=== PATIENT | male | born 1970 | race Hispanic/Latino ===

== ENCOUNTER 2019-06-08 15:26 | Emergency (ER) | payer OTHER ==
[2019-06-08] MEDS ORDERED: FENTANYL CITR 100 MCG/2 ML ONE (16:21)
[2019-06-08] MEDS ORDERED: ONDANSETRON 4 MG/2 ML VIAL ONE (16:21)
[2019-06-08 16:23] LABS: Basophils % 0.4 % (0-1.3); Lymphocytes % 17.9 % (15.3-44.8); MPV 7.5 fL (7.6-11.3); RBC Red Blood Cell Count 5.09 M/uL (4.33-5.43)
[2019-06-08 16:39] LABS: Albumin 4.3 g/dL (3.4-5.0); Bilirubin Direct 0.2 mg/dL (0-0.2); Bilirubin Total 0.6 mg/dL (0.2-1.0); Potassium 4.1 mmol/L (3.5-5.1); Protein, Total 7.2 g/dL (6.4-8.2)
[2019-06-08 16:42] LABS: Urine Blood NEGATIVE (NEG); Urine Glucose NEGATIVE (NEG); Urine Protein NEGATIVE (NEG); Urine pH 6.5 (5.0-7.0)
--- NOTE | 2019-06-08 16:56 | RAD REPORT ---
EXAM DESCRIPTION: CT - Abdomen Pelvis Wo Contrast - 06/08/2019 4:45 pm CLINICAL HISTORY: ABD PAIN COMPARISON: Abdomen Pelvis Wo Contrast dated 05/29/2017 TECHNIQUE: Axial [address] imaging of the abdomen and pelvis was performed without IV contrast. No IV contrast was given because of allergy, abnormal renal function, patient refusal or physician re quest. No oral contrast administered. All CT scans are performed using dose optimization technique as appropriate and may include automated exposure control or mA/KV adjustment according to patient size. FINDINGS: No suspicious findings in the lung bases. Diffuse fatty infiltration of the liver noted. No focal liver lesion. Spleen and pancreas show no kirsty picious findings. Cholecystectomy clips are present. No biliary tree dilatation. No hydronephrosis or suspicious renal mass. No significant adrenal finding. Isodense renal masses an d pyelonephritis cannot be excluded in the absence of IV contrast. The urinary bladder is without sig nificant finding. No dilated bowel loops or bowel wall thickening. Appendix is normal. No free air, free fluid or infla mmatory stranding. No mass or bulky lymphadenopathy. Patient has a very small 10 mm umbilical hernia. Fat extends into the origin of the left inguinal canal. No acute bone finding. Patient has significant for age degenerative change at the L4-5 and L5-S1 disc levels. IMPRESSION: Non-contrast enhanced CT abdomen and pelvis imaging show no acute or emergent finding fi nding. Nonacute findings detailed in the body of the report. Full assessment is limited is the absence of IV contrast.
--- NOTE | 2019-06-08 17:22 | ER ---
Nurse's Notes [facility] Name: Miguel A Triplett Age: 49 yrs Sex: Male : 1970 Arrival Date: 06/08/2019 Time: 15:27 Bed 23 Private MD: Diagnosis: Other abdominal pain;Strain of muscle, fascia and tendon of abdomen Presentation: 06/08 15:48 Presenting complaint: Patient states: i have RLQ radiating to my back for few days now. mg2 Transition of care: patient was not received from another setting of care. Onset of symptoms was May 2019. Risk Assessment: Do you want to hurt yourself or someone else? Patient reports no desire to harm self or others. Initial Sepsis Screen: Does the patient meet any 2 criteria? No. Patient's initial sepsis screen is negative. Does the patient have a suspected source of infection? No. Patient's initial sepsis screen is negative. Care prior to arrival: None. 15:48 Method Of Arrival: Ambulatory mg2 15:48 Acuity: ALBA 3 mg2 Historical: - Allergies: 15:50 iodine dye; mg2 - PMHx: 15:50 Hypertension; mg2 - PSHx: 15:50 Cholecystectomy; mg2 - Immunization history:: Flu vaccine is not up to date. - Social history:: Smoking status: Patient/guardian denies using tobacco, Patient/guardian denies using alcohol, street drugs, IV drugs. - Ebola Screening: : No symptoms or risks identified at this time. Screenin:04 Abuse screen: Denies threats or abuse. Denies injuries from another. Nutritional mg2 screening: No deficits noted. Tuberculosis screening: No symptoms or risk factors identified. Fall Risk None identified. Assessment: 16:20 General: Appears in no apparent distress. comfortable, Behavior is calm, cooperative. mg2 Pain: Complains of pain in posterior aspect of right lateral abdomen and anterior aspect of right lateral abdomen Pain radiates to right mid back. 16:20 Neuro: Level of Consciousness is awake, alert, obeys commands, Oriented to person, mg2 place, time, situation. Cardiovascular: Capillary refill < 3 seconds Patient's skin is warm and dry. Respiratory: Airway is patent Respiratory effort is even, unlabored, Respiratory pattern is regular, symmetrical. GI: Bowel sounds present X 4 quads. Abd is soft and non tender Reports lower abdominal pain. : No signs and/or symptoms were reported regarding the genitourinary system. EENT: No signs and/or symptoms were reported regarding the EENT system. Derm: Skin is intact, is healthy with good turgor, Skin is pink, warm \T\ dry. normal. Musculoskeletal: Circulation, motion, and sensation intact. Capillary refill < 3 seconds. 17:37 Reassessment: Patient appears in no apparent distress at this time. Patient states mg2 feeling better. Vital Signs: 15:49 Weight 127.01 kg; Height 5 ft. 9 in. (175.26 cm); mg2 16:03 BP 132 / 85; Pulse 87; Resp 18; Pulse Ox 97% on R/A; mg2 16:23 Temp 97.8; Pain 3/10; mg2 17:37 BP 137 / 81; Pulse 80; Resp 18; Temp 98; Pulse Ox 100% on R/A; mg2 15:49 Body Mass Index 41.35 (127.01 kg, 175.26 cm) mg2 ED Course: 15:27 Patient arrived in ED. as 15:38 Dario Perez PA is PHCP. jr8 15:38 Vladimir Kim MD is Attending Physician. jr8 15:48 Kodi Stratton RN is Primary Nurse. mg2 15:49 Triage completed. mg2 15:50 Arm band placed on. mg2 16:23 No provider procedures requiring assistance completed. Inserted saline lock: 20 gauge mg2 in right forearm, using aseptic technique. Blood collected. 16:44 CT Abd/Pelvis - Without Contrast In Process Unspecified. EDMS 17:00 Patient has correct armband on for positive identification. mg2 17:37 IV discontinued, intact, bleeding controlled, No redness/swelling at site. Pressure mg2 dressing applied. Administered Medications: 16:22 Drug: fentaNYL (PF) 75 mcg Route: IVP; Site: right forearm; mg2 17:36 Follow up: Response: No adverse reaction; Marked relief of symptoms mg2 16:22 Drug: Zofran 4 mg Route: IVP; Site: right forearm; mg2 17:36 Follow up: Response: No adverse reaction; Marked relief of symptoms mg2 Outcome: 17:21 Discharge ordered by . jr8 17:38 Discharged to home ambulatory, with family. mg2 17:38 Condition: stable 17:38 Discharge instructions given to patient, family, Instructed on discharge instructions, follow up and referral plans. medication usage, Demonstrated understanding of instructions, follow-up care, medications, Prescriptions given X 3. 17:38 Patient left the ED. mg2 Signatures: Dispatcher [employer] Beata Alonso Josh, PA PA jr8 Kodi Stratton, RN RN mg2
--- NOTE | 2019-06-08 17:22 | EDPHYS ---
Physician Documentation [facility] Name: Miguel A Triplett Age: 49 yrs Sex: Male : 1970 Arrival Date: 06/08/2019 Time: 15:27 Bed 23 Private MD: ED Physician Vladimir Kim HPI: 06/08 16:31 This 49 yrs old Male presents to ER via Ambulatory with complaints of jr8 Abdominal Pain, Back Pain. 16:31 The patient presents with abdominal pain right lower quadrant. Onset: The jr8 symptoms/episode began/occurred gradually, 3 day(s) ago. The symptoms radiate to right back, the right flank. Associated signs and symptoms: Pertinent positives: anorexia. The symptoms are described as sharp. Modifying factors: The symptoms are alleviated by nothing, the symptoms are aggravated by nothing. Severity of pain: At its worst the pain was moderate in the emergency department the pain is unchanged. The patient has not experienced similar symptoms in the past. The patient has not recently seen a physician. Stated the he does a lot of exercising and though he had pulled a muscle in right side of back and abdomen. Stated that he has given it a few days but getting worse and now has loss of appetite. Denies n/v/d or fevers . Historical: - Allergies: 15:50 iodine dye; mg2 - PMHx: 15:50 Hypertension; mg2 - PSHx: 15:50 Cholecystectomy; mg2 - Immunization history:: Flu vaccine is not up to date. - Social history:: Smoking status: Patient/guardian denies using tobacco, Patient/guardian denies using alcohol, street drugs, IV drugs. - Ebola Screening: : No symptoms or risks identified at this time. ROS: 16:31 Eyes: Negative for injury, pain, redness, and discharge, ENT: Negative for injury, jr8 pain, and discharge, Neck: Negative for injury, pain, and swelling, Cardiovascular: Negative for chest pain, palpitations, and edema, Respiratory: Negative for shortness of breath, cough, wheezing, and pleuritic chest pain, MS/Extremity: Negative for injury and deformity, Skin: Negative for injury, rash, and discoloration, Neuro: Negative for headache, weakness, numbness, tingling, and seizure. 16:31 Abdomen/GI: Positive for abdominal pain, Negative for nausea, vomiting, and diarrhea, constipation, abdominal cramps, abdominal distension. 16:31 Back: Positive for pain with movement, flank pain, on the right. Exam: 16:31 Eyes: Pupils equal round and reactive to light, extra-ocular motions intact. Lids and jr8 lashes normal. Conjunctiva and sclera are non-icteric and not injected. Cornea within normal limits. Periorbital areas with no swelling, redness, or edema. ENT: Nares patent. No nasal discharge, no septal abnormalities noted. Tympanic membranes are normal and external auditory canals are clear. Oropharynx with no redness, swelling, or masses, exudates, or evidence of obstruction, uvula midline. Mucous membranes moist. Neck: Trachea midline, no thyromegaly or masses palpated, and no cervical lymphadenopathy. Supple, full range of motion without nuchal rigidity, or vertebral point tenderness. No Meningismus. Cardiovascular: Regular rate and rhythm with a normal S1 and S2. No gallops, murmurs, or rubs. Normal PMI, no JVD. No pulse deficits. Respiratory: Lungs have equal breath sounds bilaterally, clear to auscultation and percussion. No rales, rhonchi or wheezes noted. No increased work of breathing, no retractions or nasal flaring. Skin: Warm, dry with normal turgor. Normal color with no rashes, no lesions, and no evidence of cellulitis. MS/ Extremity: Pulses equal, no cyanosis. Neurovascular intact. Full, normal range of motion. Neuro: Awake and alert, GCS 15, oriented to person, place, time, and situation. Cranial nerves II-XII grossly intact. Motor strength 5/5 in all extremities. Sensory grossly intact. Cerebellar exam normal. Normal gait. 16:31 Abdomen/GI: Inspection: obese Bowel sounds: active, all quadrants, Palpation: soft, in all quadrants, mild abdominal tenderness, in the anterior aspect of right lateral abdomen and posterior aspect of right lateral abdomen, mass, is not appreciated, rebound tenderness, is not appreciated, voluntary guarding, is not appreciated, involuntary guarding, is not appreciated, no appreciated organomegaly, Indicators: McBurney's point is not tender, Coburn's sign is negative, Rovsing's sign is negative, Liver: tenderness, is not appreciated. 16:31 Back: pain, that is mild, of the right mid back, ROM is painful, normal spinal alignment noted, CVA tenderness, is absent, vertebral tenderness, is not appreciated. Vital Signs: 15:49 Weight 127.01 kg; Height 5 ft. 9 in. (175.26 cm); mg2 16:03 BP 132 / 85; Pulse 87; Resp 18; Pulse Ox 97% on R/A; mg2 16:23 Temp 97.8; Pain 3/10; mg2 17:37 BP 137 / 81; Pulse 80; Resp 18; Temp 98; Pulse Ox 100% on R/A; mg2 15:49 Body Mass Index 41.35 (127.01 kg, 175.26 cm) mg2 MDM: 15:44 Patient medically screened. jr8 17:20 Differential diagnosis: appendicitis, bowel obstruction, diverticulitis, non-specific jr8 abd pain, Ureterolithiasis, urinary tract infection, hernia. Data reviewed: vital signs, nurses notes, lab test result(s), radiologic studies, CT scan. Data interpreted: Pulse oximetry: on room air is 97 %. Interpretation: normal. Counseling: I had a detailed discussion with the patient and/or guardian regarding: the historical points, exam findings, and any diagnostic results supporting the discharge/admit diagnosis, lab results, radiology results, the need for outpatient follow up, a family practitioner, to return to the emergency department if symptoms worsen or persist or if there are any questions or concerns that arise at home. Response to treatment: the patient's symptoms have markedly improved after treatment. 06/08 16:06 Order name: Basic Metabolic Panel; Complete Time: 17:12 06/08 16:06 Order name: CBC with Diff; Complete Time: 16:26 06/08 16:06 Order name: Creatinine for Radiology; Complete Time: 17:12 06/08 16:06 Order name: Hepatic Function; Complete Time: 17:12 06/08 16:06 Order name: CT Abd/Pelvis - Without Contrast; Complete Time: 17:12 06/08 16:19 Order name: Urine Dipstick--Ancillary (enter results); Complete Time: 17:12 em1 06/08 16:06 Order name: IV Saline Lock; Complete Time: 16:23 06/08 16:06 Order name: Labs collected and sent; Complete Time: 16:23 06/08 16:06 Order name: Urine Dipstick-Ancillary (obtain specimen); Complete Time: 16:19 jr8 Administered Medications: 16:22 Drug: fentaNYL (PF) 75 mcg Route: IVP; Site: right forearm; mg2 17:36 Follow up: Response: No adverse reaction; Marked relief of symptoms mg2 16:22 Drug: Zofran 4 mg Route: IVP; Site: right forearm; mg2 17:36 Follow up: Response: No adverse reaction; Marked relief of symptoms mg2 Disposition: 18:33 Co-signature as Attending Physician, Vladimir Kim MD. rn Disposition: 06/08/19 17:21 Discharged to Home. Impression: Other abdominal pain, Strain of muscle, fascia and tendon of abdomen. - Condition is Stable. - Discharge Instructions: Abdominal Pain, Adult. - Prescriptions for Ibuprofen 800 mg Oral Tablet - take 1 tablet by ORAL route every 12 hours As needed take with food; 20 tablet. Tylenol- Codeine #3 300-30 mg Oral Tablet - take 2 tablets by ORAL route every 6 hours As needed; 20 tablet. Zanaflex 4 mg Oral Tablet - take 1 tablet by ORAL route every 8 hours As needed; 20 tablet. - Medication Reconciliation Form, Thank You Letter, Antibiotic Education, Prescription Opioid Use form. - Follow up: Private Physician; When: 1 week; Reason: Recheck today's complaints, Continuance of care, Re-evaluation by your physician. - Problem is new. - Symptoms have improved. Signatures: Dispatcher [employer] EDMS Vladimir Kim MD MD rn Roszak, Josh, PA PA jr8 Kodi Stratton RN RN mg2 Corrections: (The following items were deleted from the chart) 17:38 17:21 06/08/2019 17:21 Discharged to Home. Impression: Other abdominal pain; Strain of mg2 muscle, fascia and tendon of abdomen. Condition is Stable. Forms are Medication Reconciliation Form, Thank You Letter, Antibiotic Education, Prescription Opioid Use. Follow up: Private Physician; When: 1 week; Reason: Recheck today's complaints, Continuance of care, Re-evaluation by your physician. Problem is new. Symptoms have improved. jr8
[2019-06-08 18:09] VITALS: BP 137/81; TEMP 98; O2SAT 100
== END 2019-06-08 17:38 | disposition home or self-care (01) ==
LOC: ER 15:26
DX: S39.011A Strain of muscle, fascia and tendon of abdomen, initial encounter (principal); Y93.B9 Activity, other involving muscle strengthening exercises; Y92.9 Unspecified place or not applicable; Z91.09 Other allergy status, other than to drugs and biological substances
CPT/HCPCS: 85025; 80048; 36415; 80076; 81003; 74176; 96375; 96374; 99284; J3010; J2405